=== PATIENT | male | born 1935 | race Caucasian/White ===

== ENCOUNTER 2020-06-18 10:48 | Inpatient (IN) | payer MEDICARE, BC ==
--- NOTE | 2020-06-18 11:21 | PCM.HP.2 ---
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 He was seen by Oncology and had treatments and therapy that were not improving his AML. Family has brought him in due to increased altered mental status, weakness, mottling and shortness of breath. 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 Exam - Exam Exam: See Below - Exam General: Alert, Cooperative HEENT: PERRLA, Conjunctiva Clear, EACs Clear Neck: Supple, Trachea Midline Lungs: Decreased Breath Sounds, Rhonchi Cardiovascular: Tachycardia GI/Abdominal Exam: Abnormal Bowel Sounds (decreased) Back Exam: Normal Inspection Extremities: Other (mottling of extremities) Skin: Ecchymosis Neurological: Hyporeflexia, Other (decreased strength) Neuro Extensive - Mental Status: Alert, Disorientation to Time Neuro Extensive - Motor, Sensory, Reflexes: Motor/Sensory Deficits (weakness b/l legs and arms) - Patient Data Result Diagrams: 06/18/20 12:30 06/18/20 12:30 - Problem List (1) Comfort measures only status SNOMED Code(s): 24379563473320 ICD Code: Z51.5 - ENCOUNTER FOR PALLIATIVE CARE Status: Acute Priority: High Current Visit: Yes (2) AML (acute myelogenous leukemia) SNOMED Code(s): 04834220 ICD Code: C92.00 - ACUTE MYELOBLASTIC LEUKEMIA, NOT HAVING ACHIEVED REMISSION Status: Acute Priority: High Current Visit: Yes Problem List Initiated/Reviewed/Updated: Yes Orders Last 24hrs: Active Orders 24 hr Category Date Time Status Patient Status [ADT] Routine ADT 06/18/20 11:19 Ordered Vital Signs [RC] QSHIFT Care 06/18/20 11:19 Ordered Assessment/Plan Comment:: Patient to be admitted for AML. After discussion with family he will be placed as comfort cares. Patient in agreement with plan and family in agreement with Comfort cares. - Mortality Measure Prognosis:: Poor
[2020-06-18] MEDS ORDERED: Morphine Solution 10 MG/5 ML ML 100 ML Bottle PO PRN (13:29)
[2020-06-18] MEDS: Morphine Oral Concentrate 20 MG/ML 30 ML Bottle PO PRN ×2 (14:52→18:07)
[2020-06-19] MEDS: Morphine Oral Concentrate 20 MG/ML 30 ML Bottle PO PRN ×3 (01:09→20:59)
--- NOTE | 2020-06-19 09:45 | PCM.PN ---
- General Info Date of Service: 06/19/20 Subjective Update: Patient stable with continued weakness, somnolence and fatigue. He is comfortable and denies any pain. No fever or chills. He notes going in and out of consciousness. He has no concerns. Once again he is in agreement with his and per the family are in agreement with comfort cares. He states he does not want to prolong his life if there is no cure. Functional Status: Reports: Pain Controlled - Review of Systems General: Reports: Weakness, Fatigue Pulmonary: Reports: No Symptoms Cardiovascular: Reports: Dyspnea on Exertion Musculoskeletal: Reports: No Symptoms Skin: Reports: Bruising Neurological: Reports: Confusion, Weakness - Patient Data Vitals - Most Recent: Last Vital Signs Temp 36.6 C 06/19/20 07:44 Pulse 100 06/19/20 07:44 Resp 18 06/19/20 07:44 BP 109/45 L 06/19/20 07:44 Pulse Ox 90 L 06/18/20 20:00 Weight - Most Recent: 97.976 kg Lab Results Last 24 Hours: Laboratory Results - last 24 hr 06/18/20 06/18/20 06/18/20 Range/Units 12:30 12:30 21:04 WBC 55.8 H* D (4.0-11.0) K/uL RBC 1.49 L (4.50-6.50) M/uL Hgb 4.5 L* D (13.0-18.0) g/dL Hct 13.7 L* D (40.0-54.0) % MCV 92 (76-96) fL MCH 30.2 (27.0-32.0) pg MCHC 32.8 (31.0-35.0) g/dL RDW 19.3 H (11.0-16.0) % Plt Count 4 L* D (150-400) K/uL Add Manual Diff Yes Neutrophils % (Manual) 28.0 L (45.0-70.0) % Band Neutrophils % 4.0 % Lymphocytes % (Manual) 26.0 (20.0-40.0) % Atypical Lymphs % 25.0 % Monocytes % (Manual) 12.0 H (3.0-10.0) % Eosinophils % (Manual) 2.0 (1.0-5.0) % Blast Cells % [employer] Platelet Estimate Marked dec L Sodium 138 (136-145) mmol/L Potassium 3.3 L (3.5-5.1) mmol/L Chloride 100 (98-107) mmol/L Carbon Dioxide 24.7 (21.0-32.0) mmol/L Anion Gap 16.6 H (5.0-15.0) mmol/L BUN 33 H D (8-26) mg/dL Creatinine 1.71 H D (0.70-1.30) mg/dL Est Cr Clr Drug Dosing TNP Estimated GFR (MDRD) 38 L (>60) MLS/MIN BUN/Creatinine Ratio 19.3 (6-25) Glucose 127 H (74-100) mg/dL POC Glucose 156 H (74-110) mg/dL Calcium 7.1 L (8.5-10.1) mg/dL Total Bilirubin 1.8 H D (0.0-1.0) mg/dL AST 51 H (15-37) U/L ALT 17 (12-78) U/L Alkaline Phosphatase 53 (46-116) U/L Total Protein 5.6 L (6.4-8.2) g/dL Albumin 2.4 L (3.4-5.0) g/dL Globulin 3.2 (2.2-4.2) g/dL Albumin/Globulin Ratio 0.8 (0.8-2.0) TSH, Ultra Sensitive 2.218 D (0.358-3.740) uIU/mL Med Orders - Current: Current Medications Morphine Sulfate (Morphine 20 Mg/Ml Soln) 1 mg PO Q2H PRN PRN Reason: END OF LIFE Last Admin: 06/19/20 01:09 Dose: 1 mg Documented by: - Exam Quality Assessment: Supplemental Oxygen General: Lethargic Lungs: Decreased Breath Sounds, Rhonchi Cardiovascular: Tachycardia GI/Abdominal Exam: Abnormal Bowel Sounds (decreased) Sepsis Event Note - Evaluation Sepsis Screening Result: No Definite Risk - Focused Exam Vital Signs: Vital Signs Temp Pulse Resp BP 06/19/20 07:44 36.6 C 100 18 109/45 L - Problem List & Annotations (1) Comfort measures only status SNOMED Code(s): 53827886931946 Code(s): Z51.5 - ENCOUNTER FOR PALLIATIVE CARE Status: Acute Priority: High Current Visit: Yes (2) AML (acute myelogenous leukemia) SNOMED Code(s): 72571365 Code(s): C92.00 - ACUTE MYELOBLASTIC LEUKEMIA, NOT HAVING ACHIEVED REMISSION Status: Acute Priority: High Current Visit: Yes (3) Thrombocytopenia SNOMED Code(s): 028292235 Code(s): D69.6 - THROMBOCYTOPENIA, UNSPECIFIED Status: Acute Current Visit: Yes (4) Leukocytosis SNOMED Code(s): 974429134, 290823081 Code(s): D72.829 - ELEVATED WHITE BLOOD CELL COUNT, UNSPECIFIED Status: Acute Priority: High Current Visit: Yes (5) Anemia SNOMED Code(s): 520120585 Code(s): D64.9 - ANEMIA, UNSPECIFIED Status: Acute Priority: High Current Visit: Yes - Problem List Review Problem List Initiated/Reviewed/Updated: Yes - My Orders Last 24 Hours: My Active Orders 06/18/20 11:19 Patient Status [ADT] Routine Vital Signs [RC] 06/18/20 12:30 Resuscitation Status Routine 06/18/20 12:40 CULTURE MRSA SURVEY [RM] Routine 06/18/20 13:49 Morphine [Morphine 20 MG/ML Soln] 1 mg PO Q2H PRN 06/18/20 Dinner Soft Diet [DIET] - Plan Plan:: Patient to be admitted for AML. After discussion with family he will be placed as comfort cares. Patient in agreement with plan and family in agreement with Comfort cares. Patient has increased weakness and lethargy. We will continue comfort cares.
--- NOTE | 2020-06-19 16:45 | PCM.DCSUM1 ---
Discharge Summary - Discharge Data Discharge Date: 06/19/20 Discharge Disposition: DC/Tfer to Other 70 Condition: Good - Referral to Home Health Primary Care Physician: Zohaib Lester MD - Discharge Diagnosis/Problem(s) (1) Comfort measures only status SNOMED Code(s): 86968199613825 ICD Code: Z51.5 - ENCOUNTER FOR PALLIATIVE CARE Status: Acute Priority: High Current Visit: Yes (2) AML (acute myelogenous leukemia) SNOMED Code(s): 87190126 ICD Code: C92.00 - ACUTE MYELOBLASTIC LEUKEMIA, NOT HAVING ACHIEVED REMISSION Status: Acute Priority: High Current Visit: Yes (3) Thrombocytopenia SNOMED Code(s): 856646603 ICD Code: D69.6 - THROMBOCYTOPENIA, UNSPECIFIED Status: Acute Current Visit: Yes (4) Leukocytosis SNOMED Code(s): 762341067, 986342616 ICD Code: D72.829 - ELEVATED WHITE BLOOD CELL COUNT, UNSPECIFIED Status: Acute Priority: High Current Visit: Yes (5) Anemia SNOMED Code(s): 725659701 ICD Code: D64.9 - ANEMIA, UNSPECIFIED Status: Acute Priority: High Current Visit: Yes - Discharge Plan Home Medications: Home Meds Tamsulosin HCl 0.4 mg PO DAILY 04/27/15 [History] Furosemide [Lasix] 20 mg PO DAILY 06/18/20 [History] - Discharge Summary/Plan Comment DC Time >30 min.: No Discharge Summary/Plan Comment: Patient to be discharged into Respite care. Continuing comfort cares. - General Info Date of Service: 06/19/20 Subjective Update: Patient resting comfortably. No concerns at this time. - Review of Systems General: Reports: Weakness, Fatigue Pulmonary: Reports: No Symptoms Cardiovascular: Reports: No Symptoms Skin: Reports: Bruising Neurological: Reports: Weakness Psychiatric: Reports: Confusion - Patient Data Vitals - Most Recent: Last Vital Signs Temp 36.6 C 06/19/20 07:44 Pulse 100 06/19/20 07:44 Resp 18 06/19/20 07:44 BP 109/45 L 06/19/20 07:44 Pulse Ox 95 06/19/20 16:00 Weight - Most Recent: 97.976 kg Lab Results - Last 24 hrs: Laboratory Results - last 24 hr 06/18/20 Range/Units 21:04 POC Glucose 156 H (74-110) mg/dL JORGE Results - Last 24 hrs: Microbiology 06/18/20 12:40 MRSA Surveillance Culture - Final Nares, Left NO MRSA ISOLATED Med Orders - Current: Current Medications Morphine Sulfate (Morphine 20 Mg/Ml Soln) 1 mg PO Q2H PRN PRN Reason: END OF LIFE Last Admin: 06/19/20 01:09 Dose: 1 mg Documented by: - Exam General: Reports: Cooperative, Lethargic Lungs: Reports: Rhonchi Cardiovascular: Reports: Tachycardia GI/Abdominal Exam: Abnormal Bowel Sounds
[2020-06-20] MEDS: Morphine Oral Concentrate 20 MG/ML 30 ML Bottle PO PRN ×3 (00:10→05:55)
== END 2020-06-19 20:00 | disposition other institution (70) | DRG 951 ==
LOC: LB.MS 11:19
PROVIDERS: ADMIT Family Medicine; ATTEND Family Medicine
DX: Z51.5 Encounter for palliative care (principal); C92.00 Acute myeloblastic leukemia, not having achieved remission; D69.6 Thrombocytopenia, unspecified; D64.9 Anemia, unspecified; H91.90 Unspecified hearing loss, unspecified ear; Z66 Do not resuscitate; R53.1 Weakness; Z79.899 Other long term (current) drug therapy; Z87.81 Personal history of (healed) traumatic fracture; Z99.81 Dependence on supplemental oxygen
CPT/HCPCS: 36415; 80053; 82962; 84443; 85025; A0425; A0429; A9270-GY

== ENCOUNTER 2020-06-19 15:45 | Inpatient (IN) | payer SELFPAY ==
--- NOTE | 2020-06-19 16:50 | PCM.HP.2 ---
H&P History of Present Illness - General Date of Service: 06/19/20 Admit Problem/Dx: Admission Diagnosis/Problem Admission Diagnosis/Problem "Acute leukemia, disease " Source of Information: Patient, Family, Old Records History Limitations: Reports: Altered Mental Status - History of Present Illness Initial Comments - Free Text/Narative: This is a 85yoM with progressive AML admitted for Respite care. Family and patient in agreement with comfort cares. 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" Genitourinary History: Reports: BPH Musculoskeletal History: Reports: Fracture Psychiatric History: Reports: Anxiety Oncologic (Cancer) History: Reports: Leukemia, Other (See Below) Other Oncologic History: did not tolerated chemo Dermatologic History: Reports: Other (See Below) Other Dermatologic History: multiple bruising to ribs and flank area bilat from Previous falls - Past Surgical History Other Endocrine Surgeries/Procedures: thyroid issues in the past Social & Family History - Caffeine Use Caffeine Use: Reports: Coffee H&P Review of Systems - Review of Systems: Review Of Systems: Comprehensive ROS is negative, except as noted in HPI. Exam - Exam Exam: Not Obtained - Problem List (1) AML (acute myelogenous leukemia) SNOMED Code(s): 73976582 ICD Code: C92.00 - ACUTE MYELOBLASTIC LEUKEMIA, NOT HAVING ACHIEVED REMISSION Status: Acute Priority: High Qualifiers: Leukemia Active/Remission status: without remission Qualified Code(s): C92.00 - Acute myeloblastic leukemia, not having achieved remission (2) Anemia SNOMED Code(s): 262205089 ICD Code: D64.9 - ANEMIA, UNSPECIFIED Status: Acute Priority: High (3) Comfort measures only status SNOMED Code(s): 62170823966866 ICD Code: Z51.5 - ENCOUNTER FOR PALLIATIVE CARE Status: Acute Priority: High (4) Leukocytosis SNOMED Code(s): 290075624, 669309378 ICD Code: D72.829 - ELEVATED WHITE BLOOD CELL COUNT, UNSPECIFIED Status: Acute Priority: High (5) Thrombocytopenia SNOMED Code(s): 324579148 ICD Code: D69.6 - THROMBOCYTOPENIA, UNSPECIFIED Status: Acute Priority: High Problem List Initiated/Reviewed/Updated: Yes Orders Last 24hrs: Active Orders 24 hr Category Date Time Status Patient Status [ADT] Routine ADT 06/19/20 16:46 Ordered Oxygen Therapy [RC] PRN Care 06/19/20 16:46 Ordered Vital Signs [RC] Q4H Care 06/19/20 16:46 Ordered Assessment/Plan Comment:: Admitted for comfort cares under Respite. - Mortality Measure Prognosis:: Poor
[2020-06-20] MEDS ORDERED: Morphine Oral Concentrate 20 MG/ML 30 ML Bottle PO PRN (07:39)
[2020-06-20] MEDS: Morphine Solution 10 MG/5 ML ML 100 ML Bottle PO PRN ×4 (11:34→19:22)
== END 2020-06-20 23:15 | disposition expired | DRG 951 ==
LOC: LB.MS 16:46
PROVIDERS: ADMIT Family Medicine; ATTEND Family Medicine
DX: Z51.5 Encounter for palliative care (principal); C92.00 Acute myeloblastic leukemia, not having achieved remission; H91.90 Unspecified hearing loss, unspecified ear; N40.0 Benign prostatic hyperplasia without lower urinary tract symptoms; F41.9 Anxiety disorder, unspecified; D64.9 Anemia, unspecified; D69.6 Thrombocytopenia, unspecified; Z75.5 Holiday relief care; Z79.899 Other long term (current) drug therapy; Z87.81 Personal history of (healed) traumatic fracture; Z91.81 History of falling
CPT/HCPCS: A9270-GY